=== PATIENT | female | born 1960 | race Caucasian/White ===

== ENCOUNTER 2018-01-24 09:34 | Day surgery (SDC) | payer OTHER ==
[~2018-01-24] VITALS: Ht 154.9 cm; Wt 63.0 kg
[~2018-01-24 09:34] MED LIST: CARV3.125; CHOL10002; FURO20; LORA10; METO50ER; MICROZIDE12.5 M1; OMEG1CAP30; OMEGA 3 500 SO1 EACH; POTA10T; VAGIFEM10 MCG; VITAMIN D22000 UNIT; YUVAFEM10 MCG
== END 2018-01-24 11:04 | disposition home or self-care (01) ==
LOC: ORSCSDS 09:34
PROVIDERS: Orthopaedic Surgery
PROC: 01N54ZZ Release Median Nerve, Percutaneous Endoscopic Approach (ICD-10-PCS; principal; 2018-01-24 11:00)
DX: G56.01 Carpal tunnel syndrome, right upper limb (principal); I10 Essential (primary) hypertension; F41.9 Anxiety disorder, unspecified; Z79.899 Other long term (current) drug therapy
CPT/HCPCS: J0171; J0690; J2250; J3010; J7120

== ENCOUNTER → 2018-10-09 | Outpatient (CLI) | payer OTHER ==
[2018-10-11 15:07] LABS: HPV 16 Negative (Negative); HPV 18 Negative (Negative); HPV OTHER HR TYPES Negative (Negative)
== END | disposition home or self-care (01) ==
LOC: LAB SHORT 18:10 → LAB 18:10
PROVIDERS: Obstetrics & Gynecology Gynecology
DX: Z12.4 Encounter for screening for malignant neoplasm of cervix (principal)
CPT/HCPCS: 87624; G0123

== ENCOUNTER → 2020-05-10 | Outpatient (CLI) | payer OTHER | END | disposition home or self-care (01) | LOC: PLD 08:32 → LAB SHORT 08:32 | DX: L81.4 Other melanin hyperpigmentation (principal) | CPT/HCPCS: 88305; 88312; 88342 ==

== ENCOUNTER 2020-09-24 10:36 | Day surgery (SDC) | payer OTHER ==
[~2020-09-24] VITALS: Ht 154.9 cm; Wt 69.3 kg
== END 2020-09-24 12:33 | disposition home or self-care (01) ==
LOC: ORSCSDS 10:36
PROVIDERS: Internal Medicine Gastroenterology
PROC: 0DJD8ZZ Inspection of Lower Intestinal Tract, Via Natural or Artificial Opening Endoscopic (ICD-10-PCS; principal; 2020-09-24 11:45)
DX: Z12.11 Encounter for screening for malignant neoplasm of colon (principal); K57.30 Diverticulosis of large intestine without perforation or abscess without bleeding; K64.8 Other hemorrhoids; Z86.010 Personal history of colon polyps; I10 Essential (primary) hypertension; F41.9 Anxiety disorder, unspecified
CPT/HCPCS: J2704; J7120